=== PATIENT | female | born 1970 | race Hispanic/Latino ===

== ENCOUNTER 2017-09-07 11:18 | Outpatient (CLI) | payer OTHER | END 2017-09-07 11:19 | disposition home or self-care (01) | LOC: BICMAMMO 11:18 | PROVIDERS: ATTEND Physician Assistant | DX: Z12.31 Encounter for screening mammogram for malignant neoplasm of breast (principal); N64.89 Other specified disorders of breast | CPT/HCPCS: 77063; 77067 ==

== ENCOUNTER 2018-09-20 11:49 | Outpatient (CLI) | payer OTHER ==
--- NOTE | 2018-09-20 15:40 | MMO ---
Bilateral MAMMO Bilat Screen [facility]. CLINICAL HISTORY: Patient is 47 years old and is seen for screening. The patient has no family history of breast cancer. The patient has no personal history of cancer. VIEWS: The views performed were: bilateral craniocaudal with tomosynthesis and bilateral mediolateral oblique with tomosynthesis. FILMS COMPARED: The present examination has been compared to prior imaging studies performed at [facility] on 07/10/2011 and 09/07/2017. MAMMOGRAM FINDINGS: The breasts are heterogeneously dense, which could obscure a lesion on mammography. There is an equal density, oval mass measuring 9 millimeters with obscured margins seen in the inner region of the right breast. In the left breast, there are no suspicious masses, calcifications or areas of architectural distortion. IMPRESSION: MASS IN THE RIGHT BREAST REQUIRES ADDITIONAL EVALUATION. RECOMMEND DIAGNOSTIC MAMMOGRAM. ULTRASOUND MAY ALSO PROVE USEFUL AT RECALL. THE RESULTS OF THIS EXAM WERE SENT TO THE PATIENT. ACR BI-RADS Category 0 - Incomplete: Need additional imaging evaluation. [facility] will notify the patient of the need for additional imaging services. MAMMOGRAPHY NOTE: 1. A negative mammogram report should not delay a biopsy if a dominant of clinically suspicious mass is present. 2. Approximately 10% to 15% of breast cancers are not detected by mammography. 3. Adenosis and dense breasts may obscure an underlying neoplasm.
== END 2018-09-20 11:50 | disposition home or self-care (01) ==
LOC: MERGE 11:49 → BICMAMMO 11:49
PROVIDERS: ATTEND Physician Assistant
DX: Z12.31 Encounter for screening mammogram for malignant neoplasm of breast (principal); N63.10 Unspecified lump in the right breast, unspecified quadrant
CPT/HCPCS: 77063; 77067

== ENCOUNTER 2018-09-24 13:14 | Outpatient (CLI) | payer OTHER ==
--- NOTE | 2018-09-24 14:17 | ULT ---
RIGHT BREAST ULTRASOUND: 09/24/18 HISTORY: Follow-up to evaluate an abnormal mass on prior diagnostic mammogram in the 2 o'clock position. Imaging of the right breast with attenuation to the 1 to 2 o'clock is performed. There is a cyst ezekiel suring 0.6 x 0.7 cm at 2 o'clock, 2 cm from the nipple. There is a smaller cyst measuring 0.3 x 0.4 c m, approximately 4 cm from the nipple at 1 o'clock and has a small lymph node at 2 o'clock, 4 cm from the nipple measuring 0.4 cm. I am not for certain whether these definitely represent the mammogram f inding. The cyst is potentially of adequate size to account for the mammographic finding. Since this mass was not definitely visualized on prior non-3D mammograms. I would recommend a short term follow- up right unilateral diagnostic mammogram and right breast ultrasound for further assessment. IMPRESSION: BIRADS 3: Probably Benign Finding Initial Short-Interval Follow-Up Suggested Initial short-term follow up (usually 6-month) examination. Follow-up right unilateral diagnostic mammogram and right breast ultrasound in six months is recommen ded to ensure stability. Findings were discussed with the patient who was in agreement to proceeding to short term surveillanc e. POS: OFF
--- NOTE | 2018-09-24 14:18 | MMO ---
Right Breast MAMMO Unilat Diag [facility]. CLINICAL HISTORY: Patient is 47 years old and is seen for diagnostic exam. The patient has no family history of breast cancer. The patient has no personal history of cancer. VIEWS: The views performed were: right craniocaudal spot compression with tomosynthesis; right mediolateral oblique spot compression with tomosynthesis; and right mediolateral with tomosynthesis. FILMS COMPARED: The present examination has been compared to prior imaging studies performed at [facility] on 07/10/2011, 09/07/2017, 09/20/2018 and 09/24/2018. MAMMOGRAM FINDINGS: The breast is heterogeneously dense, which could obscure a lesion on mammography. There is a mass measuring 8 millimeters with circumscribed margins seen in the middle upper-inner region of the right breast. IMPRESSION: MASS IN THE RIGHT BREAST IS PROBABLY BENIGN. FOLLOW-UP IN 6 MONTHS IS RECOMMENDED. THE RESULTS OF THIS EXAM WERE SENT TO THE PATIENT. ACR BI-RADS Category 3 - Probably benign finding - short interval follow-up suggested. [facility] will notify the patient of the need for additional imaging services. MAMMOGRAPHY NOTE: 1. A negative mammogram report should not delay a biopsy if a dominant of clinically suspicious mass is present. 2. Approximately 10% to 15% of breast cancers are not detected by mammography. 3. Adenosis and dense breasts may obscure an underlying neoplasm.
== END 2018-09-24 13:15 | disposition home or self-care (01) ==
LOC: BICMAMMO 13:14
PROVIDERS: ATTEND Physician Assistant
DX: N63.12 Unspecified lump in the right breast, upper inner quadrant (principal)
CPT/HCPCS: G0279

== ENCOUNTER 2018-11-05 05:59 | Day surgery (SDC) | payer OTHER ==
[2018-11-04 09:45] VITALS: BMI 28.5
[2018-11-04 10:18] LABS: Hemoglobin 13.4 g/dL (12.0-16.0); Mean Corpuscular HGB CONC 32.1 g/dL (32.0-36.0); Mean Corpuscular Hemoglobin 29.2 pg (27.0-31.0); Mean Corpuscular Volume 91.1 fL (78.0-98.0); Mean Platelet Volume 7.9 fL (7.4-10.4); Platelet Count 279 thou/uL (130-400); Red Blood Cell (RBC) Count 4.59 mill/uL (4.20-5.40); White Blood Cell (WBC) Count 6.2 thou/uL (4.8-10.8)
[2018-11-04 10:23] LABS: BHCG - Serum Negative (NEGATIVE); Pregs Control Background? CLEAR/WHITE (CLR/WHITE); Pregs Control Bar Appear? YES (CONTROL BAR)
[2018-11-05] MEDS ORDERED: Gabapentin 300 MG CAP ONE (06:28)
[2018-11-05] MEDS ORDERED: Famotidine/PF 20 mg/2ml Vial ONE (06:29)
[2018-11-05] MEDS ORDERED: Fentanyl 100 MCG/2 ML VIAL ONE ×2 (06:34→11:22)
[2018-11-05] MEDS ORDERED: Lidocaine 2% Jelly 5 ML TUBE ONE (06:35)
[2018-11-05] MEDS ORDERED: Bupivacaine HCl 0.5%/Epinephrine 1:200,000/PF 30 ml Vial ONE (07:03)
[2018-11-05] MEDS ORDERED: Midazolam HCl 2 mg/2 ml Vial ONE (07:26)
[2018-11-05] MEDS ORDERED: Rocuronium Bromide 10 MG/ML (10ML VIAL) ONE (10:48)
[2018-11-05] MEDS ORDERED: Ketorolac Tromethamine 30 MG/ML VIAL ONE (10:48)
[2018-11-05] MEDS ORDERED: ePHEDrine 50 MG/ML VIAL ONE (10:48)
[2018-11-05] MEDS ORDERED: PHENYLEPHRINE-NS 100 MCG/ML 10 ML SYRINGE ONE (10:48)
[2018-11-05] MEDS ORDERED: Ondansetron PF 4 MG/2 ML Vial ONE (10:48)
[2018-11-05] MEDS ORDERED: Lidocaine 1% PF 5 ML VIAL ONE (10:48)
[2018-11-05] MEDS ORDERED: PROPOFOL 200 MG/20 ML VIAL ONE (10:48)
[2018-11-05] MEDS ORDERED: Glycopyrrolate 0.2 MG/ML 5 ML SYRINGE ONE (10:48)
[2018-11-05] MEDS ORDERED: Dexamethasone 20 MG/5 ML VIAL ONE (10:48)
[2018-11-05] MEDS ORDERED: HYDROcodone/Acetaminophen 5/325 mg Tablet ONE (15:15)
--- NOTE | 2018-11-05 17:09 | EKG ---
Test Reason : PREOP Blood Pressure : / mmHG Vent. Rate : 058 BPM Atrial Rate : 058 BPM P-R Int : 224 ms QRS Dur : 086 ms QT Int : 416 ms P-R-T Axes : 053 000 052 degrees QTc Int : 408 ms Sinus bradycardia with sinus arrhythmia with 1st degree A-V block with occasional Premature ventricul ar complexes Nonspecific T wave abnormality Abnormal ECG When compared with ECG of 23-AUG-2016 17:26, Premature ventricular complexes are now Present Confirmed by DR. Marcus TAVERA ([id number]) on 11/05/2018 5:09:24 PM Referred By: CAROLINA Confirmed By:DR. Marcus TAVERA
--- NOTE | 2018-11-06 10:52 | OP ---
DATE OF PROCEDURE: 11/05/2018 PREOPERATIVE DIAGNOSES: 1. Pelvic pain. 2. Menorrhagia. 3. Uterine fibroids. POSTOPERATIVE DIAGNOSES: 1. Pelvic pain. 2. Menorrhagia. 3. Uterine fibroids. PROCEDURES PERFORMED: Robotic assisted total laparoscopic hysterectomy, bilateral salpingectomy, and lysis of adhesions. ANESTHESIA: General endotracheal. LEAN SENSEI SURGEON: Shell Rick PA-C ESTIMATED BLOOD LOSS: 20 mL. IVF: 1300 mL crystalloid. URINE OUTPUT: 800 mL clear urine. COMPLICATIONS: None. DRAINS: Quinn catheter. PATHOLOGY: Uterus, cervix, and bilateral fallopian tubes. FINDINGS: Mobile 12-week size uterus sounded to 11 cm. Normal-appearing cervix. Normal-appearing fallopian tubes and ovaries. Dense adhesions of the uterus to the anterior abdominal wall in the bladder to the lower uterine segment as well as omental adhesions to the umbilicus. OPERATIVE TECHNIQUE: The patient was taken to the operating room, where general anesthesia was obtained without difficulty. The patient was prepped and draped in a sterile fashion in the dorsal lithotomy position. A Quinn was placed in the bladder. Speculum was placed in the vagina. Anterior lip of the cervix was grasped with single-tooth tenaculum. The uterus then sounded to 11 cm and the DEVORA manipulator was assembled with a 10 cm tip and a 4 cm colpotomizer ring. The reaming was inserted into the uterus. The colpotomizer ring was advanced fit snugly around the cervix. Instruments were removed out of the vagina. Legs were placed in low lithotomy. Attention was turned to the abdomen. A 0.5% Marcaine was infiltrated into the umbilicus and a 12 mm skin incision was made. The Veress needle was passed to the abdomen, noting an opening pressure of 3 mmHg. Pneumoperitoneum was obtained. The Veress needle was removed. The 12 mm trocar was advanced into the abdomen and confirmed placement with robotic camera. The above findings were noted. There were no bowel adhesions in the patient's adhesions. The Trendelenburg was obtained. Right and left lower quadrant robotic 8 mm trocars were placed under direct visualization after infiltrating with anesthetic. The right upper quadrant 11 mm bilingual sales assistant port was also placed under direct visualization after infiltrating with anesthetic. The robot was then docked. The right robotic arm contained monopolar scissors. Left robotic arm contained a fenestrated bipolar. The surgeon console took control. The omental adhesions to the umbilicus were grasped and held traction on and the scissors were used with cautery to incise these adhesions close to the anterior peritoneum. The adhesions were carefully layered out to ensure there was no bowel contained in them and then, the uterus was met and the dense thick adhesions of the uterus to the anterior abdominal wall were incised carefully and layered out as well. Hemostasis was achieved with the fenestrated. There were omental adhesions on the left adnexa as well and these were incised with the scissors. The left fallopian tube was grasped and elevated. The mesosalpinx was sequentially clamped, cauterized, and transected with the fenestrated, followed by the scissors until the medial portion was met and the medial portion was clamped across, cauterized, transected, and removed out of the abdomen. The utero-ovarian on the left was cauterized with the fenestrated, incised with the scissors, and taken down to the round ligament, that was also incised. The round ligament was involved in the adhesions and there were filmy adhesions of the round ligament to the pelvis and these were incised with the scissors, carefully laying out and also pushing and spreading to dissect the adhesions and define the spaces. The round ligament was incised then and the posterior leaf of the broad ligament was dropped down after anteverting the uterus. The anterior leaf of the broad ligament was incised very carefully, undermining with the fenestrated to ensure clear window. The bladder was backfilled. Upon reaching the pubocervical fascia after lysing adhesions for approximately 30 minutes, attention was turned to the right side, where the right fallopian tube was grasped and elevated. The mesosalpinx was sequentially clamped, cauterized, and transected and the utero-ovarian was then cauterized multiple times and transected. The fallopian tube was clamped across, cauterized, transected, and removed out of the abdomen. The round ligament was also cauterized and transected. There were fewer adhesions on this side and the anterior lip of the broad ligament was incised as well as the posterior leaf. The ureters were noted bilaterally in the retroperitoneum on the pelvic sidewall. The posterior leaf was dropped down to the level of the uterosacral ligament to allow and the vessels were skeletonized bilaterally and allowing the ureter to fall further away into the pelvic sidewall. The vesicouterine peritoneum was then layered out as well. The bladder was backfilled at this point to determine the limitations of the bladder mucosa. A window was identified underneath the dense adhesion of the bladder to the lower uterine segment and this was also layered out and the pubocervical fascia was identified on the colpotomizer ring. The adhesions were carefully incised after decompressing the bladder and the adhesions of the bladder to the uterus took approximately 15 minutes to dissect out. Once the bladder had been pushed distally below the colpotomizer ring, a scoring was used on the pubocervical fascia to dissect down any adventitial fibers well below the level of the colpotomizer ring. At this point, the vessels were clamped and cauterized bilaterally and posterior colpotomy was performed. The lateral apices were then incised as well as the vessels obtaining hemostasis with the fenestrated and also dissecting the pedicle further away from the lateral vaginal apex was to ensure no ureteral kinking with vaginal cuff closure. The anterior colpotomy was then completed and the uterus was then removed into the vagina. The scissors were traded out for the needle double bottom driver and the vaginal cuff was irrigated and hemostasis was achieved with the fenestrated. The needle was then passed into the abdomen and the 2-0 STRATAFIX barbed suture was used to close the vaginal mucosa in a running fashion incorporating vaginal mucosa and posterior peritoneum with each bite. This was run back for a second layer and the needle was cut and removed out of the abdomen. The irrigation was then again performed, back filling of the bladder was again performed noting the bladder intact without any extravasation of saline or inadvertent injury. The ureters were also noted bilaterally away from the operative sites and vermiculating. The low pressure check was performed. Hemostasis was noted to be excellent. All instruments removed out of the abdomen. The robot was undocked. The fascia of the camera port was closed with 0 Vicryl in a [id number]. Skin was closed with 4-0 Monocryl in a subcuticular fashion and Dermabond was applied. The vaginal cuff was checked and noted to be intact with excellent closure. No active bleeding. All instruments removed out of the vagina. The patient tolerated the procedure well. Sponge and needle counts correct x2. The patient was taken to recovery in stable condition. The patient received Ancef 2 g prior to the procedure. Job ID: [id number]
== END 2018-11-05 16:00 | disposition home or self-care (01) ==
LOC: SDC 05:59
PROVIDERS: ATTEND Student in an Organized Health Care Education/Training Program
PROC: 0UT74ZZ Resection of Bilateral Fallopian Tubes, Percutaneous Endoscopic Approach (ICD-10-PCS; principal; 2018-11-05)
PROC: 0UT94ZZ Resection of Uterus, Percutaneous Endoscopic Approach (ICD-10-PCS; principal; 2018-11-05)
DX: D25.9 Leiomyoma of uterus, unspecified (principal); N80.0 Endometriosis of uterus; N83.8 Other noninflammatory disorders of ovary, fallopian tube and broad ligament; N73.6 Female pelvic peritoneal adhesions (postinfective); K21.9 Gastro-esophageal reflux disease without esophagitis; F41.9 Anxiety disorder, unspecified; F32.9 Major depressive disorder, single episode, unspecified; G43.909 Migraine, unspecified, not intractable, without status migrainosus; Z87.891 Personal history of nicotine dependence; Z88.2 Allergy status to sulfonamides; Z79.899 Other long term (current) drug therapy
CPT/HCPCS: 84703; 85027; 86850; 86900; 86901; 88307; 93005; 93010; J0131; J0670; J0690; J1100; J1885; J2001; J2250; J2405; J2704; J3010; J3490; S0028

== ENCOUNTER 2019-03-31 09:05 | Outpatient (CLI) | payer OTHER ==
--- NOTE | 2019-03-31 09:57 | MMO ---
Right Breast MAMMO Unilat Diag [facility]. CLINICAL HISTORY: Patient is 48 years old and is seen for follow-up at short-interval from prior study. The patient has no family history of breast cancer. The patient has no personal history of cancer. VIEWS: The views performed were: right craniocaudal with tomosynthesis; right mediolateral oblique with tomosynthesis; and right mediolateral with tomosynthesis. FILMS COMPARED: The present examination has been compared to prior imaging studies performed at [facility] on 09/20/2018, 09/24/2018 and 03/31/2019. This study has been interpreted with the assistance of computer-aided detection. MAMMOGRAM FINDINGS: The breast is heterogeneously dense, which could obscure a lesion on mammography. There is a stable oval mass with obscured margins seen in the right breast at 1 o'clock. Sonographic findings in this region are also stable. IMPRESSION: STABLE MASS IN THE RIGHT BREAST IS PROBABLY BENIGN. FOLLOW-UP IN 6 MONTHS IS RECOMMENDED. THE RESULTS OF THIS EXAM WERE SENT TO THE PATIENT. ACR BI-RADS Category 3 - Probably benign finding - short interval follow-up suggested. [facility] will notify the patient of the need for additional imaging services. MAMMOGRAPHY NOTE: 1. A negative mammogram report should not delay a biopsy if a dominant of clinically suspicious mass is present. 2. Approximately 10% to 15% of breast cancers are not detected by mammography. 3. Adenosis and dense breasts may obscure an underlying neoplasm. Reported by: YOLIS CARRANZA MD Electonically Signed: [id number]
--- NOTE | 2019-03-31 10:50 | ULT ---
LIMITED RIGHT BREAST ULTRASOUND: Date: 03/31/19 PROVIDED CLINICAL HISTORY: Follow-up. FINDINGS: Comparison with 09/24/18. Limited sonographic interrogation of the 1 and 2 o'clock positions of the right breast was again perf ormed. Several simple appearing cysts are again seen, the larger of which may correspond to the mammo graphic finding, though this is not completely certain. The previously demonstrated lymph node is no longer identified. IMPRESSION: BI-RADS Category 3 - Probably benign findings. 6 month follow-up mammographic is recommended, at ic h time the patient will be due for bilateral exam. Sonography may also be useful at that time. POS: OFF
== END 2019-03-31 09:06 | disposition home or self-care (01) ==
LOC: BICMAMMO 09:05
PROVIDERS: ATTEND Physician Assistant
DX: N63.10 Unspecified lump in the right breast, unspecified quadrant (principal)
CPT/HCPCS: G0279

== ENCOUNTER 2019-09-30 09:29 | Outpatient (CLI) | payer OTHER ==
--- NOTE | 2019-09-30 10:06 | MMO ---
Bilateral MAMMO Bilat Diag [facility]. CLINICAL HISTORY: Patient is 48 years old and is seen for diagnostic exam. The patient has no family history of breast cancer. The patient has no personal history of cancer. VIEWS: The views performed were: bilateral craniocaudal with tomosynthesis; bilateral mediolateral oblique with tomosynthesis; and bilateral mediolateral with tomosynthesis. FILMS COMPARED: The present examination has been compared to prior imaging studies performed at [facility] on 09/24/2018 and 03/31/2019. This study has been interpreted with the assistance of computer-aided detection. MAMMOGRAM FINDINGS: The breasts are heterogeneously dense, which could obscure a lesion on mammography. The previously described right breast mass is no longer present. There are no suspicious masses, suspicious calcifications, or new areas of architectural distortion. IMPRESSION: THERE IS NO MAMMOGRAPHIC EVIDENCE OF MALIGNANCY. A ROUTINE FOLLOW-UP MAMMOGRAM IN 1 YEAR IS RECOMMENDED. THE RESULTS OF THIS EXAM WERE SENT TO THE PATIENT. ACR BI-RADS Category 2 - Benign finding MAMMOGRAPHY NOTE: 1. A negative mammogram report should not delay a biopsy if a dominant of clinically suspicious mass is present. 2. Approximately 10% to 15% of breast cancers are not detected by mammography. 3. Adenosis and dense breasts may obscure an underlying neoplasm. Reported by: YOLIS CARRANZA MD Electonically Signed: [id number]
== END 2019-09-30 09:30 | disposition home or self-care (01) ==
LOC: BICMAMMO 09:29
PROVIDERS: ATTEND Physician Assistant
DX: R92.8 Other abnormal and inconclusive findings on diagnostic imaging of breast (principal)
CPT/HCPCS: 77066; G0279

== ENCOUNTER 2020-10-21 14:52 | Outpatient (CLI) | payer OTHER | END 2020-10-21 14:53 | disposition home or self-care (01) | LOC: BICMAMMO 14:52 | PROVIDERS: ATTEND Physician Assistant | DX: Z12.31 Encounter for screening mammogram for malignant neoplasm of breast (principal) | CPT/HCPCS: 77063; 77067 ==

== ENCOUNTER 2020-12-21 | Emergency (ER) | payer OTHER | END 2020-12-22 02:17 | disposition home or self-care (01) | DX: R42 Dizziness and giddiness (principal) ==

== ENCOUNTER 2021-01-21 11:35 | Outpatient (CLI) | payer OTHER | END 2021-01-21 11:36 | disposition home or self-care (01) | LOC: CT 11:35 | PROVIDERS: ATTEND Student in an Organized Health Care Education/Training Program | DX: M26.609 Unspecified temporomandibular joint disorder, unspecified side (principal) | CPT/HCPCS: 70480 ==

== ENCOUNTER 2021-01-30 05:59 | Emergency (ER) | payer OTHER ==
[2021-01-30] MEDS ORDERED: Ketorolac Tromethamine 30 MG/ML VIAL ONE (06:57)
[2021-01-30] MEDS ORDERED: Ondansetron ODT 4 MG TAB ONE (06:57)
[2021-01-30] MEDS ORDERED: Metoclopramide HCl 10 MG TAB ONE (06:58)
[2021-01-30 16:57] LABS: SARS-CoV-2 PCR by NAA Not Detected (NotDetected)
== END 2021-01-30 07:40 | disposition home or self-care (01) ==
LOC: ERS 05:59
DX: U07.1 COVID-19 (principal)
CPT/HCPCS: 96372; 99284; J1885; Q0162; U0003; U0005

== ENCOUNTER 2021-02-02 08:22 | Outpatient (CLI) | payer OTHER | END 2021-02-02 08:23 | disposition home or self-care (01) | LOC: BICMRI 08:22 | PROVIDERS: ATTEND Nurse Practitioner Acute Care | DX: G43.109 Migraine with aura, not intractable, without status migrainosus (principal) | CPT/HCPCS: 70553 ==

== ENCOUNTER 2021-10-06 19:22 | Emergency (ER) | payer BC ==
[2021-10-06] MEDS ORDERED: Ibuprofen 200 MG TAB ONE (19:33)
== END 2021-10-06 20:14 | disposition home or self-care (01) ==
LOC: ERS 19:22
DX: S90.121A Contusion of right lesser toe(s) without damage to nail, initial encounter (principal); W22.8XXA Striking against or struck by other objects, initial encounter

== ENCOUNTER 2021-12-13 09:58 | Outpatient (CLI) | payer BC | END 2021-12-13 09:59 | disposition home or self-care (01) | LOC: BICMAMMO 09:58 | PROVIDERS: ATTEND Physician Assistant | DX: Z12.31 Encounter for screening mammogram for malignant neoplasm of breast (principal) | CPT/HCPCS: 77063; 77067 ==

== ENCOUNTER 2022-11-22 08:47 | Emergency (ER) | payer BC ==
[2022-11-22 10:10] LABS: Bacteria/HPF None Seen HPF (None Seen); Bilirubin Negative (Negative); Blood, Urine Negative (Negative); Clarity Clear (Clear); Glucose, Urine (Dipstick) Normal (Negative); Ketone, Urine Negative (Negative); Leukocyte Negative Leu/uL (Negative); Nitrite Negative (Negative); Protein, Urine (Dipstick) Negative (Neg-Trace); RBC/HPF 0-3 HPF (0-3); Specific Gravity, Urine 1.017 (1.002-1.036); Squamous Epithelial 0-3 HPF (0-3); Urobilinogen Normal mg/dL (Less than 2); WBC/HPF 0-3 HPF (0-3)
[2022-11-22 10:30] LABS: #Eosinphils 0.1 thou/uL (0.0-0.7); #Monocytes 0.5 thou/uL (0.11-0.59); #Neutrophils 3.9 thou/uL (1.40-6.50); %Basophils 0.4 % (0.0-1.0); %Eosinophils 1.5 % (0.0-10.0); %Lymphocytes 34.2 % (21.0-51.0); %Monocytes 7.2 % (0.0-10.0); %Neutrophils 56.3 % (42.0-75.0); Mean Corpuscular HGB CONC 31.9 g/dL (32.0-36.0); Mean Corpuscular Hemoglobin 29.3 pg (27.0-31.0); Mean Corpuscular Volume 91.9 fl (78.0-98.0); Mean Platelet Volume 9.9 fL (7.4-10.4); Platelet Count 258 10x3/uL (130-400); RBC Distribution Width 13.3 % (11.5-14.5); Red Blood Cell (RBC) Count 4.09 mill/uL (4.20-5.40); White Blood Cell (WBC) Count 6.8 10x3/uL (4.8-10.8)
[2022-11-22 11:02] LABS: ALT (SGPT) 38 U/L (8-55); AST (SGOT) 31 U/L (5-34); Albumin 3.8 g/dL (3.5-5.0); Alkaline Phosphatase 61 U/L (40-110); Anion Gap 11 mmol/L (10-20); BUN (Urea Nitrogen) 15 mg/dL (9.8-20.1); Bilirubin, Total 0.2 mg/dL (0.2-1.2); Calc. Creatinine Clearance 0 mL/min (70-130); Calcium 8.6 mg/dL (7.8-10.44); Carbon Dioxide 27 mmol/L (22-29); Chloride 106 mmol/L (98-107); Estimated GFR 101; Globulin 2.5 g/dL (2.4-3.5); Glucose 89 mg/dL (70-105); Potassium 4.2 mmol/L (3.5-5.1); Protein, Total 6.3 g/dL (6.0-8.3); Sodium 140 mmol/L (136-145)
[2022-11-22 11:06] LABS: Troponin I Less than 0.010 ng/mL (< 0.028)
[2022-11-22 13:01] LABS: Troponin I Less than 0.010 ng/mL (< 0.028)
== END 2022-11-22 13:16 | disposition home or self-care (01) ==
LOC: ERS 08:47
DX: R60.0 Localized edema (principal); R07.2 Precordial pain
CPT/HCPCS: 71045; 80053; 81001; 83880; 84484; 85025; 85379; 93005

== ENCOUNTER 2023-01-10 10:00 | Outpatient (CLI) | payer BC | END 2023-01-10 10:01 | disposition home or self-care (01) | LOC: BICMAMMO 10:00 | PROVIDERS: ATTEND Physician Assistant | DX: Z12.31 Encounter for screening mammogram for malignant neoplasm of breast (principal) | CPT/HCPCS: 77063; 77067 ==